=== PATIENT | male | born 1950 | race Caucasian/White ===

== ENCOUNTER → 2017-07-29 | Outpatient (CLI) | payer OTHER ==
[~2017-07-29] MED LIST: ASPI81TA28 PO; CYCL10TA6 PO; DULA0.5I INJ; FURO-85 PO; GABA-113 PO; HMLNPUC INJ; INSHNI INJ; INSU1.2I INJ; MELO7.5T5 PO; METF1TAB53 PO; NVLGI/PEN INJ; PRLSR20 PO; SIMV10TA2 PO; TAMS0.4C38 PO
[2017-07-29 16:56] LABS: ALT/SGPT 80 U/L (12-78); AST/SGOT 88 U/L (15-37); BLOOD UREA NITROGEN 15 mg/dl (7-18); BUN/CREATININE RATIO 12.9 (10-20); CALCIUM 8.7 mg/dl (8.5-10.1); CARBON DIOXIDE 30 mmol/L (21-32); CHLORIDE 102 mmol/L (98-107); CREATININE 1.13 mg/dl (0.60-1.40); GLUCOSE 273 mg/dl (70-99); POTASSIUM 3.5 mmol/L (3.5-5.1); SODIUM 141 mmol/L (136-145)
[2017-07-29 17:07] LABS: ALKALINE PHOSPHATASE 85 U/L (45-117)
[2017-07-30 05:30] LABS: ESTIMATED AVERAGE GLUCOSE 177 mg/dl; HA1C FLAG Normal (Normal)
== END | disposition home or self-care (01) ==
LOC: C.LAB 15:56
PROVIDERS: ATTEND Nurse Practitioner Adult Health
DX: K59.09 Other constipation (principal); E78.5 Hyperlipidemia, unspecified; I10 Essential (primary) hypertension; E11.49 Type 2 diabetes mellitus with other diabetic neurological complication; E11.65 Type 2 diabetes mellitus with hyperglycemia; E55.9 Vitamin D deficiency, unspecified

== ENCOUNTER 2017-08-17 05:45 | Inpatient (IN) | payer OTHER ==
[2017-07-29 15:22] VITALS: BMI 40.0
--- NOTE | 2017-07-29 16:15 | PAT Medication Instructions ---
Service Date Jul 29, 2017. Current Home Medication List Aspirin (Aspirin Ec), 81 MG PO QPM Cyclobenzaprine Hcl (Flexeril), 10 MG PO TID PRN for PRN Dulaglutide (Trulicity), 1.5 MG INJ THURSDAY Furosemide (Lasix), 20 MG PO QAM Gabapentin (Neurontin), 300 MG PO TID Insulin Aspart (Novolog Flexpen), 20-35 UNITS INJ HS Insulin Glargine (Toujeo Solostar), 35 INJ QAM Insulin Human NPH (Humulin N), 35 INJ HS Meloxicam (Mobic), 7.5 MG PO QPM Metformin Hcl (Glucophage Ext Rel), 1,000 MG PO BID Omeprazole (Prilosec), 20 MG PO QAM Simvastatin (Zocor), 10 MG PO QPM Tamsulosin Hcl (Flomax), 0.4 MG PO QPM Medication Instructions For Your Scheduled Surgery Continue as directed: Dulaglutide (Trulicity), 1.5 MG INJ THURSDAY - Contact your surgeon for instructions for: Meloxicam (Mobic), 7.5 MG PO QPM - Hold the following medications 48 hours prior to surgery: Metformin Hcl (Glucophage Ext Rel), 1,000 MG PO BID - Hold the following medications the morning of surgery: Furosemide (Lasix), 20 MG PO QAM Cyclobenzaprine Hcl (Flexeril), 10 MG PO TID PRN for PRN - Take the following medications the morning of surgery with a sip of water: Omeprazole (Prilosec), 20 MG PO QAM Gabapentin (Neurontin), 300 MG PO TID - Take the following medications as scheduled the night before surgery: Simvastatin (Zocor), 10 MG PO QPM Tamsulosin Hcl (Flomax), 0.4 MG PO QPM Gabapentin (Neurontin), 300 MG PO TID Aspirin (Aspirin Ec), 81 MG PO QPM Insulin Aspart (Novolog Flexpen), 20-35 UNITS INJ HS Insulin Human NPH (Humulin N), 35 INJ HS Cyclobenzaprine Hcl (Flexeril), 10 MG PO TID PRN for PRN - For Insulin Dependent Diabetic patients: Test blood sugar A.M. of surgery. - If BLOOD SUGAR IS GREATER THAN 150, take half of your regular dose of: Insulin Glargine (Toujeo Solostar), 35 INJ QAM TAKE 17 UNITS) - If BLOOD SUGAR IS LESS THAN 150, do not take any: Insulin Glargine ( Toujeo Solostar), 35 INJ QAM If you have any questions please call us at [phone] or [phone] or [phone]
[2017-07-29 16:43] LABS: BASO % 0.3 %; BASO ABS # 0.02 K/uL (0-0.2); EOS % 2.3 %; EOS ABS # 0.14 K/uL (0-0.5); HEMATOCRIT 40.9 % (42-52); HEMOGLOBIN 14.6 g/dL (14.0-18.0); IG# 0.03 K/uL (0.00-0.02); LYMPH % 33.4 %; LYMPH ABS # 2.07 K/uL (1.2-3.4); MEAN CELL VOLUME 90.5 fL (80-100); MEAN CORPUSCULAR HEMOGLOBIN 32.3 pg (25-34); MEAN CORPUSCULAR HGB CONC 35.7 g/dl (32-36); MEAN PLATELET VOLUME 9.7 fL (7.4-10.4); MONO % 8.5 %; MONO ABS # 0.53 K/uL (0.11-0.59); NEUT ABS # 3.41 K/uL (1.4-6.5); PLATELET COUNT 180 K/uL (130-400); RED CELL DISTRIBUTION WIDTH SD 43.1 fL (36.4-46.3)
--- NOTE | 2017-07-29 17:24 | DIAGNOSTIC IMAGING REPORT ---
CHEST 2 VIEWS ROUTINE CLINICAL HISTORY: PAT preoperative evaluation COMPARISON STUDY: No previous studies for comparison. FINDINGS: Pleural reactive change and pleural thickening both lung bases. In the absence of prior studies and is not clear whether this represents an acute or chronic finding. Mid to upper lungs are considered clear. Mild cardiomegaly. IMPRESSION: 1. Mild cardiomegaly. 2. Mid to upper lungs are clear bilaterally. 3. Pleural thickening and/or pleural scarring of both lung bases. In the absence of prior studies it is not determined whether this represents an acute or chronic finding. Old films should be acquired for comparison. The above report was generated using voice recognition software. It may contain grammatical, syntax or spelling errors. Electronically signed by: Graeme Chester M.D. 07/29/2017 5:22 PM Dictated Date/Time: 07/29/2017 5:21 PM
[~2017-08-17] VITALS: Ht 170.2 cm; Wt 116.9 kg
[2017-08-17] VITALS (9 sets, daily range): BP systolic 117–141; BP diastolic 74–86; PULSE 84–97; TEMP 36.5–36.7; O2SAT 92–98; Ht 170.2 cm; Wt 116.9 kg
[~2017-08-17 05:45] MED LIST changes: -HMLNPUC INJ
[2017-08-17] MEDS ORDERED: LACTATED RINGER'S 1000ML 1,000 ML IV SCH (06:00)
[2017-08-17] MEDS ORDERED: CEFAZOLIN 2000MG IV PUSH 10 ML IV SCH ×2 (06:00→16:00)
[2017-08-17] MEDS ORDERED: FENTANYL CITRATE INJ 50 MCG/1 ML 2 ML VIAL ONE ×3 (06:42→09:07)
[2017-08-17] MEDS ORDERED: MIDAZOLAM HCL 1 MG/ML 2ML VIAL ONE (06:42)
[2017-08-17] MEDS ORDERED: SODIUM CHLORIDE 0.9% PF 50 ML VIAL ONE (07:05)
[2017-08-17] MEDS ORDERED: BACITRACIN 50000 UNIT VIAL ONE (07:05)
[2017-08-17] MEDS ORDERED: BUPIVACAINE/EPINEPHRINE 0.5% MPF 1:200,000 30 ML VIAL ONE (07:05)
--- NOTE | 2017-08-17 07:29 | History & Physical Bridge Note ---
H&P Re-Evaluation Bridge Note: I have examined the patient, reviewed the History & Physical and in the interval since the performance of the History & Physical I have noted the following changes of clinical significance: No changes noted
--- NOTE | 2017-08-17 07:30 | History and Physical ---
History & Physical Date Aug 17, 2017. Chief Complaint Back and leg pain History of Present Illness The patient is a 66 year old male with complaints of back and leg pain Additional History Hepatic Disease: No Endocrine Disorder: No Kidney Disease: No Hypertension: No Heart Disease: No Bleeding Tendencies: No Infectious Diseases: No Allergies Coded Allergies: Naproxen (Verified Allergy, Unknown, SWELLING OF HANDS, 08/17/17) Esomeprazole (Unverified Adverse Reaction, Unknown, VOMITING, 08/17/17) Pregabalin (Unverified Adverse Reaction, Unknown, SUICIDAL THOUGHTS, 08/17) Home Medications Scheduled Aspirin (Aspirin Ec), 81 MG PO QPM Dulaglutide (Trulicity), 1.5 MG INJ THURSDAY Furosemide (Lasix), 20 MG PO QAM Gabapentin (Neurontin), 300 MG PO TID Insulin Aspart (Novolog Flexpen), 20-35 UNITS INJ HS Insulin Glargine (Toujeo Solostar), 35 INJ QAM Insulin Human NPH (Humulin N), 35 INJ HS Meloxicam (Mobic), 7.5 MG PO QPM Metformin Hcl (Glucophage Ext Rel), 1,000 MG PO BID Omeprazole (Prilosec), 20 MG PO QAM Simvastatin (Zocor), 10 MG PO QPM Tamsulosin Hcl (Flomax), 0.4 MG PO QPM Scheduled PRN Cyclobenzaprine Hcl (Flexeril), 10 MG PO TID PRN for PRN Diagnosis Lumbar spinal stenosis Plan of Treatment L2 to S1 decompression and fusion
[2017-08-17] MEDS ORDERED: ONDANSETRON INJ 2 MG/ML 2 ML VIAL IV PRN ×2 (07:45→10:00)
[2017-08-17] MEDS ORDERED: PROMETHAZINE HCL INJ 6.25 MG in SODIUM CHLORIDE 0.9% 50ML 50 ML IV PRN (07:45)
[2017-08-17] MEDS ORDERED: FENTANYL CITRATE INJ 50 MCG/1 ML 2 ML VIAL IV PRN (07:45)
[2017-08-17] MEDS ORDERED: ATROPINE SULFATE 0.1 MG/ML 5ML SYR IV PRN (07:45)
[2017-08-17] MEDS ORDERED: EpHEDrine SULFATE INJ 50 MG/ML AMP IV PRN (07:45)
[2017-08-17] MEDS ORDERED: HYDROmorphone INJ 2 MG/ML SYR/VIAL ONE ×2 (08:02→10:01)
[2017-08-17] MEDS ORDERED: EpHEDrine SULFATE 50MG/5ML SYR ONE (09:21)
[2017-08-17] MEDS ORDERED: PHENYLEPHRINE 100MCG/ML 5ML SYR ONE (09:21)
[2017-08-17] MEDS ORDERED: LIDOCAINE HCL 2% 2 ML VIAL (20MG/ML) ONE (09:40)
[2017-08-17] MEDS ORDERED: ONDANSETRON INJ 2 MG/ML 2 ML VIAL ONE ×2 (09:40→10:04)
[2017-08-17] MEDS ORDERED: ROCURONIUM BROMIDE 10 MG/ML 5 ML VIAL IV ONE (09:40)
[2017-08-17] MEDS ORDERED: PROPOFOL IV EMULSION 10 MG/ML 20 ML VIAL IV ONE (09:40)
[2017-08-17] MEDS ORDERED: FLOSEAL HEMOSTATIC MATRIX 10ML TOP ONE (09:48)
[2017-08-17] MEDS ORDERED: SODIUM CHLORIDE 0.9% 1000ML 1,000 ML IV SCH (09:59)
[2017-08-17] MEDS ORDERED: MAGNESIUM HYDROXIDE SUSP 30 ML UDC PO PRN (10:00)
[2017-08-17] MEDS ORDERED: ACETAMINOPHEN 500 MG TAB PO PRN (10:00)
[2017-08-17] MEDS ORDERED: PROMETHAZINE HCL INJ 12.5 MG in SODIUM CHLORIDE 0.9% 50ML 50 ML IV PRN (10:00)
[2017-08-17] MEDS ORDERED: LORAZEPAM 0.5 MG TAB PO PRN (10:00)
[2017-08-17] MEDS ORDERED: FAMOTIDINE 20 MG TAB PO PRN (10:00)
[2017-08-17] MEDS ORDERED: BISACODYL 10 MG SUPP PR PRN (10:00)
[2017-08-17] MEDS ORDERED: CYCLOBENZAPRINE HCL 10 MG TAB PO PRN (10:00)
[2017-08-17] MEDS ORDERED: DO NOT ADMINISTER FLU VACCINE PRN (10:00)
[2017-08-17] MEDS ORDERED: NALOXONE HCL 0.4 MG/1 ML VIAL/CARP IV PRN ×2 (10:00)
[2017-08-17] MEDS ORDERED: LORAZEPAM INJ 0.5 MG in SYRINGE 0.75 ML IV PRN (10:00)
[2017-08-17] MEDS ORDERED: SOD PHOSPHATE/SOD BIPHOSPHATE ENEMA 132 ML BTL PR PRN (10:00)
[2017-08-17] MEDS ORDERED: ACETAMINOPHEN IV 100 ML IV PRN (10:00)
[2017-08-17] MEDS ORDERED: ALUMINUM/MAGNESIUM SUSP 30 ML UDC PO PRN (10:00)
[2017-08-17] MEDS ORDERED: METOCLOPRAMIDE HCL INJ 5 MG/ML 2 ML VIAL IV PRN (10:00)
[2017-08-17] MEDS ORDERED: DO NOT ADMINISTER PNEUMOCOCCAL VACCINE PRN (10:00)
--- NOTE | 2017-08-17 10:02 | DIAGNOSTIC IMAGING REPORT ---
INTRAOPERATIVE LUMBAR SPINE 2 VIEWS CLINICAL HISTORY: L4-S1 DECOMPRESSION AND FUSION COMPARISON STUDY: No previous studies for comparison. FINDINGS: 2 fluoroscopic spot views are provided for interpretation. 26 seconds of fluoroscopic time was utilized. There are postsurgical changes of an L5-S1 discectomy and interbody fusion. There are postsurgical changes of a decompression and posterior spinal fusion with pedicle screws the L4, L5 and S1 levels with adjoining spinal rods. IMPRESSION: Postsurgical changes as described above. Electronically signed by: Erasmo Baker M.D. 08/17/2017 10:01 AM Dictated Date/Time: 08/17/2017 10:00 AM
[2017-08-17] MEDS ORDERED: KETOROLAC TROMETHAMINE 30 MG/ML VIAL ONE (10:04)
[2017-08-17] MEDS ORDERED: NEOSTIGMINE METHYLSULFATE 1 MG/ML 10ML VIAL ONE (10:04)
[2017-08-17] MEDS ORDERED: GLYCOPYRROLATE INJ 0.2 MG/ML VIAL ONE (10:04)
[2017-08-17] MEDS ORDERED: HYDROmorphone HCL 0.5MG/ML 50 ML CASSETTE ONE (10:26)
[2017-08-17] MEDS ORDERED: ESMOLOL HCL 10 MG/ML 10 ML VIAL ONE (11:05)
[2017-08-17] MEDS: HYDROmorphone HCL 0.5MG/ML 50 ML CASSETTE IV PRN ×3 (11:12→23:03)
--- NOTE | 2017-08-17 11:14 | Anesthesiology Progress Note ---
Anesthesia Post Op Note Date & Time Aug 17, 2017 at 11:14 Vital Signs Pain Intensity: 0 Vital Signs Past 12 Hours Date Time Temp Pulse Resp B/P (MAP) Pulse Ox O2 Delivery O2 Flow Rate FiO2 08/17/17 10:55 36.6 85 18 154/73 94 Nasal Cannula 4 08/17/17 10:45 86 18 155/82 97 Nasal Cannula 4 08/17/17 10:35 84 14 149/79 97 Oxymask 10 08/17/17 10:25 88 14 116/80 96 Oxymask 10 08/17/17 10:17 36.7 86 24 116/78 97 Oxymask 10 08/17/17 06:05 36.7 92 20 123/82 94 Room Air Notes Mental Status: alert / awake / arousable, participated in evaluation Pt Amnestic to Procedure: Yes Nausea / Vomiting: adequately controlled Pain: adequately controlled Airway Patency, RR, SpO2: stable & adequate BP & HR: stable & adequate Hydration State: stable & adequate Anesthetic Complications: no major complications apparent
--- NOTE | 2017-08-17 11:15 | NUR ---
OBS note: Pt. to room via bed. MATCHER intact, and IV fluid on pump per orders. Pt. is very sleepy from the anesthesia and unable to do teaching of call winn, MATCHER and bed controls at this time. Pts. at bedside. Call winn within reach.
[2017-08-17] MEDS ORDERED: DEXTROSE 50% 50 ML SYR IV PRN (12:45)
[2017-08-17] MEDS ORDERED: GLUCAGON FOR INJ 1 MG VIAL SQ PRN (12:45)
[2017-08-17] MEDS ORDERED: GLUCOSE 40% GEL 15 GM TUBE PO PRN (12:45)
[2017-08-17] MEDS ORDERED: GLUCOSE 10 TABS/TUBE PO PRN (12:45)
--- NOTE | 2017-08-17 13:10 | [facility] Operative Report ---
Operative Report Operative Date Aug 17, 2017. Pre-Operative Diagnosis Lumbar spinal stenosis Post-Operative Diagnosis Lumbar spinal stenosis Procedure(s) Performed #1 lumbar decompression medial facetectomy foraminotomies L3 4 L4 5 L5-S1. #2 posterior spinal fusion L4 5 L5-S1. #3 placement posterior segmental instrumentation L4 5 L5-S1. #4 interbody fusion L5-S1. #5 placement peek cage 12 x 22 mm L5 S1. #6 placement of locally harvested morcellized autograft in the posterior lateral gutters. #7 placement infuse collagen sponge combined Master graft in the posterior lateral gutters and ostial amp in the interbody space. Surgeon Dr. Jian Godinez School Commissioner Surgeon(s) Elise Hampton PA-C Estimated Blood Loss 225cc Findings Lumbar spinal stenosis Description of Procedure Patient was met with preoperatively case discussed all questions addressed. After informed consent obtained patient was taken to the operative suite underwent intubation placed in a prone position the Galindo table on top of the Viktor frame. All bony prominences well-padded eyes inspected to ensure no external pressure placed upon them. This point the lumbar spine is prepped draped in normal sterile fashion. Sharp dissection with the assistance of Bovie cautery was performed onto an exposing the lamina and transverse processes of L4-L5 and sacral alar bilaterally. From a caudal cephalad fashion complete laminectomy of L5 L4 and partial laminectomy of L3 performed addressing severe central lateral disease. After this complete pedicle screws were placed in L4-L5 and sacral alar bilaterally. The purposes jamie placed. Through a transforaminal approach on the left complete discectomy of L5-S1 was performed and plate created to subcortical bleeding bone and a 12 x 22 mm peek cage filled with ostial amp bone graft tapped in position. The rods were then locked into final position bilaterally. The transverse processes of L4-L5 and sacral alar burred to subcortical bleeding bone. Infuse collagen sponge mask graft locally harvested morcellized autograft was placed in the posterior lateral gutters. 15 round JALEN drain inserted. Incision was then closed with 1 Vicryl in the fascia 2-0 Vicryl subcutaneous tediously 4 Monocryl for final skin closure Steri-Strips sterile dressings placed. Patient we can take PACU stable condition. Please note Elise Hampton present at the entire procedure involved in patient positioning complex portions of the surgery and final skin closure. I attest to the content of the Intraoperative Record and any orders documented therein. Any exceptions are noted below.
--- NOTE | 2017-08-17 13:13 | Medical Consult ---
Consultation Date of Consultation: Aug 17, 2017. Attending Physician: Jian Godinez D.O. Reason for Consultation: Post-op medical management History of Present Illness This is a 66yo M with a PMH of lumbar stenosis with neurogenic claudication, DM II, HTN, HLD, GERD, BPH and DEBORAH who is POD#0 s/p L4-S1 decompression and fusion by Dr. Godinez. 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 Doing well post-operatively. Denies any pain, fever , chills, lightheadedness, CP, SOB, abd pain, nausea, vomiting, LE swelling. Denies any history of heart disease. Follows with an inpatient pharmacist in [place], [place] for diabetes but is unsure of his most recent hgb a1c. Did not take insulin this AM prior to surgery per pre-op instructions. Past Medical/Surgical History Medical Problems: (1) BPH (benign prostatic hyperplasia) Status: Chronic (2) Diabetes mellitus type II, controlled Status: Chronic (3) GERD (gastroesophageal reflux disease) Status: Chronic (4) HLD (hyperlipidemia) Status: Chronic (5) Lumbar stenosis with neurogenic claudication Status: Chronic (6) Sleep apnea Status: Chronic Family History Patient is adopted and does not know history of biological parents. Social History Smoking Status: Never Smoker Alcohol Use: none Marital Status: Housing Status: lives with significant other Occupation Status: disabled Allergies Coded Allergies: Naproxen (Verified Allergy, Unknown, SWELLING OF HANDS, 08/17/17) Esomeprazole (Unverified Adverse Reaction, Unknown, VOMITING, 08/17/17) Pregabalin (Unverified Adverse Reaction, Unknown, SUICIDAL THOUGHTS, 08/17) Home Medications Reported Home Medications Medications Dose Route/Sig Max Daily Dose Days Date Category Humulin N (Insulin Human NPH) 100 Units/Ml Susp 35 INJ HS 07/29/17 Reported Toujeo Solostar (Insulin Glargine) 300 Unit/Ml Inj 35 INJ QAM 07/29/17 Reported Flexeril (Cyclobenzaprine Hcl) 10 Mg Tab 10 Mg PO TID PRN 07/29/17 Reported Mobic (Meloxicam) 7.5 Mg Tab 7.5 Mg PO QPM 07/29/17 Reported Novolog Flexpen (Insulin Aspart) 100 Units/Ml Inj 20-35 Units INJ HS 07/29/17 Reported Aspirin Ec (Aspirin) 81 Mg Tab 81 Mg PO QPM 07/29/17 Reported Zocor (Simvastatin) 10 Mg Tab 10 Mg PO QPM 07/29/17 Reported Flomax (Tamsulosin Hcl) 0.4 Mg Cap 0.4 Mg PO QPM 07/29/17 Reported Lasix (Furosemide) 20 Mg Tab 20 Mg PO QAM 07/29/17 Reported Neurontin (Gabapentin) 300 Mg Cap 300 Mg PO TID 07/29/17 Reported Trulicity (Dulaglutide) 1.5 Mg/0.5 Ml Inj 1.5 Mg INJ Thursday07/29/17 Reported Prilosec (Omeprazole) 20 Mg Capcr 20 Mg PO QAM 07/29/17 Reported Glucophage Ext Rel (Metformin Hcl) 1,000 Mg Tab 1,000 Mg PO BID 07/29/17 Reported Current Inpatient Medications Current Inpatient Medications Medications (Trade) Dose Ordered Sig/Mc Route Start Time Stop Time Status Last Admin Dose Admin Cefazolin Sodium 10 ml @ 2.5 mls/min PREOP IV 08/17/17 06:00 08/17/17 18:00 08/17/17 07:40 2.5 MLS/MIN Lactated Ringer's 1,000 ml @ 15 mls/hr Q24H IV 08/17/17 06:00 08/18/17 05:59 08/17/17 06:13 15 MLS/HR Fentanyl Citrate (Fentanyl Inj) 50 mcg Q5M PRN IV 08/17/17 07:45 08/17/17 12:45 Ondansetron HCl (Zofran Inj) 4 mg ONE PRN IV 08/17/17 07:45 08/17/17 12:45 Promethazine HCl 6.25 mg/Sodium Chloride 50.25 ml @ 202 mls/hr ONE PRN IV 08/17/17 07:45 08/17/17 12:45 Ephedrine Sulfate (EpHEDrine SULFATE INJ) 5 mg Q5M PRN IV 08/17/17 07:45 08/17/17 12:45 Atropine Sulfate (Atropine Sulfate 0.1MG/Ml Inj) 0.5 mg Q1M PRN IV 08/17/17 07:45 08/17/17 12:45 Promethazine HCl 12.5 mg/Sodium Chloride 50.5 ml @ 202 mls/hr Q6H PRN IV 08/17/17 10:00 09/16/17 09:59 Ondansetron HCl (Zofran Inj) 4 mg Q6H PRN IV 08/17/17 10:00 09/16/17 09:59 Metoclopramide HCl (Reglan Inj) 10 mg Q6H PRN IV 08/17/17 10:00 09/16/17 09:59 Lorazepam (Ativan Tab) 0.5 mg Q8H PRN PO 08/17/17 10:00 09/16/17 09:59 Lorazepam 0.5 mg/ Syringe 1 ml @ 1 mls/min Q8H PRN IV 08/17/17 10:00 09/16/17 09:59 Pneumococcal Polysaccharide Vaccine 1 ea PRN PRN N/A 08/17/17 10:00 09/16/17 09:59 Influenza Virus Vacc Triv Types A&B 1 ea PRN PRN N/A 08/17/17 10:00 09/16/17 09:59 Polyethylene (Miralax Powder Packet) 17 gm Q6 PO 08/19/17 06:00 09/18/17 05:59 UNV Bisacodyl (Dulcolax Supp) 10 mg DAILY PRN RI 08/17/17 10:00 09/16/17 09:59 Magnesium Hydroxide (Milk Of Magnesia Susp) 30 ml DAILY PRN PO 08/17/17 10:00 09/16/17 09:59 Hydromorphone HCl (Dilaudid Inj) 0.5-1mg prn moder... Q3H PRN IV 08/18/17 06:00 09/01/17 05:59 Cefazolin Sodium 2000 mg/Dextrose 60 ml @ 100 mls/hr Q8H IV 08/17/17 10:00 08/17/17 18:35 UNV Sodium Chloride 1,000 ml @ 150 mls/hr Q6H40M IV 08/17/17 09:59 09/16/17 09:58 UNV Acetaminophen (Tylenol Tab) 1,000 mg Q8H PRN PO 08/17/17 10:00 09/16/17 09:59 Acetaminophen 100 ml @ 400 mls/hr Q8H PRN IV 08/17/17 10:00 09/16/17 09:59 Naloxone HCl (Narcan Inj) 0.1 mg Q5M PRN IV 08/17/17 10:00 09/16/17 09:59 Senna/Docusate Sodium (Senokot S Tab) 2 tab HS PO 08/17/17 21:00 09/16/17 20:59 UNV Sodium Biphosphate/ Sodium Phosphate (Fleet Enema) 132 ml ONE PRN RI 08/17/17 10:00 09/16/17 09:59 Hydroxyzine HCl (Vistaril Tab) 25 mg Q8H PRN PO 08/17/17 10:00 09/16/17 09:59 UNV Al Hydroxide/Mg Hydroxide (Maalox Susp) 30 ml Q6H PRN PO 08/17/17 10:00 09/16/17 09:59 Famotidine (Pepcid Tab) 20 mg Q12 PRN PO 08/17/17 10:00 09/16/17 09:59 UNV Diphenhydramine HCl (Benadryl Cap) 25 mg Q6H PRN PO 08/17/17 10:00 09/16/17 09:59 Miscellaneous Information (Discontinue GUIDEMAN) 1 ea TODAY@0600 N/A 08/18/17 06:00 08/18/17 06:01 Naloxone HCl (Narcan Inj) 0.1 mg Q5M PRN IV 08/17/17 10:00 08/18/17 06:00 Hydromorphone HCl (Dilaudid [employer]) 25 mg PRN PRN IV 08/17/17 10:00 08/18/17 06:00 08/17/17 11:12 25 MG Sodium Chloride 1,000 ml @ 15 mls/hr Q24H IV 08/17/17 09:59 08/18/17 06:00 Aspirin (Ecotrin Tab) 81 mg QPM PO 08/17/17 21:00 09/16/17 20:59 UNV Cyclobenzaprine HCl (Flexeril Tab) 10 mg TID PRN PO 08/17/17 10:00 09/16/17 09:59 UNV Furosemide (Lasix Tab) 20 mg QAM PO 08/18/17 09:00 09/17/17 08:59 UNV Gabapentin (Neurontin Cap) 300 mg TID PO 08/17/17 14:00 09/16/17 13:59 UNV Simvastatin (Zocor Tab) 10 mg QPM PO 08/17/17 21:00 09/16/17 20:59 UNV Tamsulosin HCl (Flomax Cap) 0.4 mg QPM PO 08/17/17 21:00 09/16/17 20:59 UNV Non-Formulary Medication (Omeprazole (Prilosec)) 20 mg QAM PO 08/18/17 09:00 09/17/17 08:59 UNV Review of Systems Ten systems reviewed and negative except as noted in the HPI. Physical Exam Date Time Temp Pulse Resp B/P (MAP) Pulse Ox O2 Delivery O2 Flow Rate FiO2 08/17/17 11:10 36.7 84 16 141/74 (96) 94 Nasal Cannula 4.0 08/17/17 11:10 94 Nasal Cannula 4.0 08/17/17 11:10 94 Nasal Cannula 4.0 08/17/17 10:55 36.6 85 18 154/73 94 Nasal Cannula 4 08/17/17 10:45 86 18 155/82 97 Nasal Cannula 4 08/17/17 10:35 84 14 149/79 97 Oxymask 10 08/17/17 10:25 88 14 116/80 96 Oxymask 10 08/17/17 10:17 36.7 86 24 116/78 97 Oxymask 10 08/17/17 06:05 36.7 92 20 123/82 94 Room Air General Appearance: no apparent distress, + obese, + pertinent finding ( Resting comfortably) Head: normocephalic, atraumatic Eyes: normal inspection, PERRL, sclerae normal ENT: normal ENT inspection, hearing grossly normal, pharynx normal (moist mucous membranes ) Neck: supple, thyroid normal, trachea midline Respiratory/Chest: chest non-tender, lungs clear, normal breath sounds, no respiratory distress, no accessory muscle use Cardiovascular: regular rate, rhythm, no murmur, normal peripheral pulses Abdomen/GI: non tender, soft, no organomegaly Back: + pertinent finding (post-op dressing in place. Clean, dry, intact. ) Extremities/Musculoskelatal: normal inspection, no calf tenderness, no pedal edema Neurologic/Psych: no motor/sensory deficits, alert, normal mood/affect, oriented x 3 Skin: normal color, warm/dry Laboratory Results Last 24 Hours Test 08/17/17 06:28 08/17/17 10:23 Bedside Glucose 242 mg/dl 204 mg/dl Assessment & Plan This is a 66yo M with a PMH of lumbar stenosis with neurogenic claudication, DM II, HTN, HLD, GERD, BPH and DEBORAH who is POD#0 s/p L4-S1 decompression and fusion by Dr. Godinez. Lumbar stenosis s/p spinal surgery: -POD#0 s/p L4-S1 decompression and fusion by Dr. Godinez -Pt is doing well post-operatively -Recommend holding mobic post-operatively -Okay to continue baby aspirin tonight, per Dr. Godinez -Per ortho for pain control, wound care, anticoagulation and activities -Monitor H&H, continue incentive spirometry, PT/OT when appropriate DM II: -Hgb a1c unknown -Will check in AM -Follows closely with inpatient pharmacist -Hold home agents -Discussed in-patient glycemic regimen with pharmacy -BG checks AC HS HTN: -Stable -Resume lasix once completed IVF -Add 0.1mg clonidine Q6 PRN for SBP >160 HLD: -Cont home dose statin GERD: -Cont omeprazole BPH: -Cont tamsulosin DEBORAH: -Wears mouthguard at night -No CPAP DVT Ppx: Per ortho Code status: FULL PCP: Dr. Phelps (PCP in [place], [place]) Dispo: Per ortho Patient seen in collaboration with Dr. Mallory. Please see addendum. Thank you for this consultation. We will follow the patient with you during their hospital stay. You can reach a member of the [facility] Hospitalist Team 23/03 via pager @ [phone]. Agree with above consult. Briefly 66m is s/p back surgery. pain under control. Denies chest pain or sob. Afebrile. No nausea. Resting comfortably p/e Ge Not in distress Cvs s1 and s2 heard regular no murmurs Rs cta b/l no wheezing or crackles present Abd benign Machine Fixer non focal musculoskeletal s/p back surgery dressing intact Ext no edema a/p s/p back surgery management as per ortho DM hold po meds ISS will monitor
[2017-08-17] MEDS: SODIUM CHLORIDE 0.9% 1000ML 1,000 ML IV SCH ×3 (14:25→23:30)
[2017-08-17] MEDS: INSULIN GLARGINE SOLOSTAR 100 UNITS/ML 3 ML PEN SC SCH ×2 (14:31→21:29)
[2017-08-17] MEDS: INSULIN ASPART 100 UNITS/ML 3 ML PEN SC SCH ×3 (14:32→21:29)
[2017-08-17] MEDS: GABAPENTIN 300 MG CAP PO SCH ×2 (14:35→21:24)
--- NOTE | 2017-08-17 15:30 | NUR ---
ID: Pt A/O x 4. Rates pain 10/10 at this time. COMPLIANCE COORDINATOR of 0.25mg dilaudid Q10min 0 continuous. NSS at 150 in the left FA. Triflow to 2250 on 4L NC. Pt CO bilateral lower extremity neuropathy, baseline. Pt is passing gas. DMT2 . Barnard draining clear yellow. JALEN draining bloody, dressing intact. ABD and medipore clean dry and intact. Bed in low and locked position, call winn in reach, pt rings appropriately. Pt states he wears a Bite guard at night for sleep apnea.
[2017-08-17] MEDS ORDERED: CEFAZOLIN IV 2,000 MG in DEXTROSE 5% 50ML 50 ML IV SCH (16:00)
[2017-08-17] MEDS: CEFAZOLIN IV 2,000 MG in SYRINGE 0 ML IV SCH ×2 (16:09→23:30)
[2017-08-17] MEDS: TAMSULOSIN HCL 0.4 MG CAP PO SCH (21:24)
[2017-08-17] MEDS: SIMVASTATIN 10 MG TAB PO SCH (21:24)
[2017-08-17] MEDS: DOCUSATE SODIUM/SENNA 50/8.6MG TAB PO SCH (21:24)
[2017-08-17] MEDS: ASPIRIN 81 MG ECTAB PO SCH (21:24)
[2017-08-18] VITALS (9 sets, daily range): BP systolic 116–162; BP diastolic 75–84; PULSE 94–106; TEMP 36.8–37.2; O2SAT 86–95
[2017-08-18] MEDS ORDERED: INSULIN ASPART 100 UNITS/ML 3 ML PEN SC ONE (02:00)
[2017-08-18] MEDS ORDERED: NURSING DECISION MEDICATION ORDER SCH (05:15)
[2017-08-18] MEDS ORDERED: DC PCA SCH (06:00)
[2017-08-18] MEDS ORDERED: HYDROmorphone INJ 0.5 MG/0.5 ML SYR IV PRN (06:00)
[2017-08-18] MEDS ORDERED: hydrOXYzine HCL 25 MG TAB PO PRN (06:01)
--- NOTE | 2017-08-18 07:40 | Anesthesiology Progress Note ---
Anesthesia Post Op Note Date & Time Aug 18, 2017 at 07:40 Vital Signs Pain Intensity: 8.0 Vital Signs Past 12 Hours Date Time Temp Pulse Resp B/P (MAP) Pulse Ox O2 Delivery O2 Flow Rate FiO2 08/18/17 07:20 36.9 99 18 143/76 (98) 94 Room Air 08/18/17 03:45 37.1 98 18 125/77 (93) 93 Nasal Cannula 2.0 08/17/17 23:35 Nasal Cannula 2.0 08/17/17 23:33 93 Nasal Cannula 2.0 08/17/17 23:10 36.7 93 16 117/74 (88) 98 Nasal Cannula 4.0 Notes Mental Status: alert / awake / arousable, participated in evaluation Pt Amnestic to Procedure: Yes Nausea / Vomiting: adequately controlled Pain: adequately controlled Airway Patency, RR, SpO2: stable & adequate BP & HR: stable & adequate Hydration State: stable & adequate Anesthetic Complications: no major complications apparent
[2017-08-18] MEDS: GABAPENTIN 300 MG CAP PO SCH ×3 (08:25→21:11)
[2017-08-18] MEDS: FUROSEMIDE 20 MG TAB PO SCH (08:25)
[2017-08-18] MEDS: PANTOprazole SOD 40 MG TAB PO SCH (08:26)
[2017-08-18] MEDS: INSULIN ASPART 100 UNITS/ML 3 ML PEN SC SCH ×4 (08:30→21:15)
[2017-08-18] MEDS: INSULIN GLARGINE SOLOSTAR 100 UNITS/ML 3 ML PEN SC SCH ×2 (08:32→21:16)
[2017-08-18 08:37] LABS: BASO % 0.1 %; BASO ABS # 0.01 K/uL (0-0.2); EOS % 0.9 %; EOS ABS # 0.09 K/uL (0-0.5); HEMATOCRIT 38.3 % (42-52); HEMOGLOBIN 13.7 g/dL (14.0-18.0); IG# 0.02 K/uL (0.00-0.02); LYMPH % 17.1 %; LYMPH ABS # 1.67 K/uL (1.2-3.4); MEAN CELL VOLUME 92.3 fL (80-100); MEAN CORPUSCULAR HGB CONC 35.8 g/dl (32-36); MONO % 8.9 %; MONO ABS # 0.87 K/uL (0.11-0.59); NEUT % 72.8 %; NEUT ABS # 7.13 K/uL (1.4-6.5); PLATELET COUNT 131 K/uL (130-400); RED CELL DISTRIBUTION WIDTH CV 12.9 % (11.5-14.5); RED CELL DISTRIBUTION WIDTH SD 43.7 fL (36.4-46.3); WHITE BLOOD COUNT 9.79 K/uL (4.8-10.8)
[2017-08-18 08:56] LABS: CALCIUM 8.3 mg/dl (8.5-10.1); CREATININE 0.98 mg/dl (0.60-1.40); POTASSIUM 4.1 mmol/L (3.5-5.1)
[2017-08-18 09:29] LABS: HEMOGLOBIN A1C 7.5 % (4.5-5.6)
[2017-08-18] MEDS ORDERED: NURSING VERBAL MED ORDER ONE ×2 (10:45→14:45)
--- NOTE | 2017-08-18 11:19 | NUR ---
Case Management- Met with patient in room. Patient reports he lives with significant other in a two story home with no steps to enter has a first floor set up. He is independent with adls using no devices and still drives. Patient reports he uses no assistive devices if there is a need he would like to use dme supplier in [place]. Patient plans to return home on discharge. CM following
--- NOTE | 2017-08-18 12:15 | NUR ---
A note: When getting pt. OOB to the BR this morning and checking his dressing, I noticed he had a fluid filled blister and an open blister to his R upper back. I also noted that pt. had been sweating and his back and sheet was damp. I cleaned the area and left it open to air. Dr. Godinez aware. No new orders at this time.
[2017-08-18] MEDS ORDERED: RXC5 PO (12:18)
--- NOTE | 2017-08-18 12:19 | Discharge Instructions ---
Discharge Instructions Date of Service Aug 18, 2017. Admission Reason for Admission: Lumbar Spinal Stenosis Discharge Discharge Diagnosis / Problem: lumbar stenosis Discharge Goals Goal(s): Improve function Activity Recommendations Activity Limitations: per Instructions/Follow-up section . Instructions / Follow-Up Instructions / Follow-Up ACTIVITY RECOMMENDATIONS: SELF CARE INSTRUCTIONS AFTER THORACIC/LUMBAR FUSIONS 1. You may walk to your tolerance. It is good exercise for your legs and back. Expect some back and intermittent leg aches and pains. 2. You may perform "counter-top" level activities (make a sandwich, rosa maria with a project, etc.). 3. No bending or lifting of more than 10 pounds or back twisting of any nature (roll like a log when turning in bed). 4. You may ride in a car for 20-30 minutes at a time. No driving until after your first visit with your doctor. 5. Frequent changes of position and restricting sitting to 30 minutes at a time will help limit the amount of back spasms and stiffness you may experience. 6. You may discontinue the use of ambulatory aids (cane, crutches, etc.) once your strength and confidence allow. 7. You may mill roll rewinder the shower and let water strike your incision when you arrive home at least once daily. Do not take a tub bath, sit in a hot tub or go into a swimming pool until after your first recheck in the office. SPECIAL CARE INSTRUCTIONS: VERY IMPORTANT TO READ AND REVIEW A. Your surgical incision has been closed with a cosmetic suture under the skin that will dissolve in about 6 weeks. In 14 days, you can use a pair of clean scissors and cut the suture that is left outside of the skin at the ends of your incision. 1. The small skin tapes can be removed 7 days after surgery if they have not fallen off by that point. 2. You may keep the wound open to air as much as possible to promote healing after post-op day number 5 unless told otherwise by your doctor. 3. If you think the wound looks like it is becoming infected (redness or worsening drainage) and/or you are experiencing fever, chill or worsening back pain and muscle spasms, contact the office so that we may evaluate you as soon as possible. B. Complications are uncommon, but please contact us if you have any signs or symptoms of: 1. wound infection (fever higher than 102.5 degrees F, redness, separation of wound, drainage, or increasing pain from the incision) 2. blood clots in legs (pain, swelling, redness and warmth in legs) 3. urinary tract infection (fever higher than 102.5 degrees F, burning upon urination or increased frequency of urination) 4. nerve problems (inability to walk on your toes or heels, numbness, loss of bowel or bladder control) 5. any other symptoms that concern you C. Please call the office at if you have any concerns or questions about your operation or recovery. D. No smoking! Smoking drastically decreases the chance of a solid fusion. E. Do not take any anti-inflammatory medications (Indocin, Advil, Motrin, Aspirin, Naprosyn, etc.) as these may inhibit the chance of a solid fusion. Tylenol is okay to take for pain. MANAGING PAIN AFTER SPINAL SURGERY 1. Narcotic medication is intended for short-term use and will be provided for surgical pain. Surgical pain usually lasts for a period of 4-6 weeks. Narcotic medication includes Percocet, Vicodin, Darvocet, Tylenol #3 or Lortab. 2. Longer-term pain is more appropriately treated with non-narcotic medication such as Tylenol ES. 3. Muscle spasm is not appropriately treated with narcotics. Muscle relaxers such as Soma, Flexeril or Skelaxin can be used along with Tylenol ES. 4. Remember that we all live with some "aches and pains". This is not unusual or uncommon after an injury or as we get older. a. Back pain is expected and may include muscle spasms for 4 to 6 weeks after surgery. The pain should gradually improve. If the pain worsens for no apparent reason, please contact the office. b. Intermittent leg pain may also be experienced and should not be concerned about unless it worsens for no apparent reason. If so, please contact the office. 5. We will provide appropriate medication within the normal guidelines of their prescribed use. We will also be very cautious and aware of potential abuse and extended duration of patients' medication needs. a. Pain medications are for your comfort and to assist with sleep and rest so that the tissue can heal. They are not provided in order to return to normal activity and should not be used through the day. To do so or worsening pain at night can result from ongoing tissue damage and development of tolerance to the prescribed medicine. 6. Please allow 2-3 days to process refills. Prescriptions will not be mailed but must be picked up at the office. FOLLOW UP VISIT: Keep your scheduled follow-up appointment. Any questions, please call the office at . Current Hospital Diet Patient's current hospital diet: Diabetes Type 2 Diet Discharge Diet Recommended Diet: Regular Diet Procedures Procedures Performed: #1 lumbar decompression medial facetectomy foraminotomies L3 4 L4 5 L5-S1. #2 posterior spinal fusion L4 5 L5-S1. #3 placement posterior segmental instrumentation L4 5 L5-S1. #4 interbody fusion L5-S1. #5 placement peek cage 12 x 22 mm L5 S1. #6 placement of locally harvested morcellized autograft in the posterior lateral gutters. #7 placement infuse collagen sponge combined Master graft in the posterior lateral gutters and ostial amp in the interbody space. Pending Studies Studies pending at discharge: no Laboratory Results Hemoglobin A1c Test 08/18/17 08:23 Range/Units Estimated Average Glucose 169 mg/dl Hemoglobin A1c 7.5 H 4.5-5.6 % Medical Emergencies . Who to Call and When: Medical Emergencies: If at any time you feel your situation is an emergency, please call 911 immediately. . Non-Emergent Contact Non-Emergency issues call your: Primary Care Provider . "Provider Documentation" section prepared by Jian Godinez. . VTE Core Measure Inpt VTE Proph given/why not?: Devonte Asencio, SCD's
--- NOTE | 2017-08-18 12:37 | Progress Note ---
Progress Note Date of Service Aug 18, 2017. Progress Note Patient is postop day #1. Back pain is controlled. Leg symptoms improved. Vital signs are stable. On exam he is sitting up in bed he is comfortable. Demonstrate good strength testing. Assessment status post lumbar decompression fusion. Plan at this time will continue physical therapy advance his bowel regimen anticipate home .
[2017-08-18] MEDS: KETOROLAC TROMETHAMINE 15 MG/ML VIAL IV. PRN (13:15)
--- NOTE | 2017-08-18 15:40 | NUR ---
ID: A/O x 4 at this time. oob x 1 assist with a walker. Pt sitting in chair presently. Saline locked in the left hand. Triflow to 2200 on 2L nasal cannula. Tolerating DMT2 diet. Incontinent per report, not presently witnessed. ABD and medipore to back, clean dry and intact with a JALEN holding suction at this time. Additionally there are 3-4 open blisters to the right upper back open to air at this time, will continue to monitor for changes. Pt has a slight tremor to the bilateral hands but otherwise appears to be resting comfortably. When asked about alcohol intake pt states he has 5-10 beers/day. Bed in low and locked position, call winn in reach. Pt forgets to ring.
--- NOTE | 2017-08-18 18:00 | NUR ---
A: Pt put himself back in bed. Intermittent confusion, when asked why he is getting up he says "you tell me". Incontinence witnessed. Pt reorients quickly, but is unstable on his feet. Bed alarm is on, chair alarm ordered in the event that he wants to sit in the chair again, Socks changed to Red. Reinforcement regarding call winn use and ringing for help provided. MD aware of confusion and alcohol use.
[2017-08-18] MEDS: OXYCODONE HCL IR 5 MG TAB (IMMEDIATE RELEASE) PO PRN (18:12)
--- NOTE | 2017-08-18 18:52 | Progress Note ---
Internal Med Progress Note Date of Service: Aug 18, 2017. Provider Documentation: SUBJECTIVE: Seen and examined at bedside Back pain is controlled Denies chest pain, SOB, dizziness No other complaints OBJECTIVE: Vital Signs-as noted below Physical Exam: General Appearance:Obese, no apparent distress Head: normocephalic, Atraumatic Eyes: normal inspection, EOMI, PERRL Neck: supple, Trachea midline Respiratory/Chest: Normal breath sounds, CTA Cardiovascular: S1, S2, No murmur Abdomen/GI:Soft, Non tender, Bowel sounds present Back: Surgical site in bandage, +drain Extremities/Musculoskelatal:normal inspection, no edema Neurologic/Psych:AAOX3, grossly no focal neurological deficits Skin: normal color, warm Lab data as noted below. ASSESSMENT & PLAN: Patient is a 66 yr male with PMH of lumbar stenosis with neurogenic claudication , DM II, HTN, HLD, GERD, BPH and DEBORAH who is POD#0 s/p L4-S1 decompression and fusion by Dr. Godinez. Lumbar stenosis s/p spinal surgery: POD # 1 s/p L4-S1 decompression and fusion by Dr. Godinez Pain control Bowel regimen wound care, anticoagulation and activity per Ortho Incentive spirometry PT/OT DM II: A1C:7.5 Hold home agents ISS, Lnatus Monitor BG levels HTN: Stable Continue lasix HLD: Continue statin GERD: Continue PPI BPH: Continue tamsulosin DEBORAH: Wears mouthguard at night No CPAP Alcohol use disorder: Thiamine, folic acid Already on Gabapentin for Neuropathy Monitor for withdrawal DVT Px: Per ortho Code status: FULL Disposition: Per ortho Vital Signs: Date Time Temp Pulse Resp B/P (MAP) Pulse Ox O2 Delivery O2 Flow Rate FiO2 08/18/17 15:30 37.2 99 18 116/75 (89) 92 Nasal Cannula 2.0 08/18/17 11:39 36.8 94 16 126/79 (95) 94 Nasal Cannula 1.0 08/18/17 10:11 100 95 08/18/17 09:08 93 Nasal Cannula 1.0 08/18/17 09:07 86 Room Air 08/18/17 07:20 36.9 99 18 143/76 (98) 94 Room Air 08/18/17 07:20 Room Air 08/18/17 03:45 37.1 98 18 125/77 (93) 93 Nasal Cannula 2.0 08/17/17 23:35 Nasal Cannula 2.0 08/17/17 23:33 93 Nasal Cannula 2.0 08/17/17 23:10 36.7 93 16 117/74 (88) 98 Nasal Cannula 4.0 Lab Results: Results Past 24 Hours Test 08/17/17 20:42 08/18/17 01:55 08/18/17 08:00 08/18/17 08:23 Range/Units Bedside Glucose 201 190 212 70-99 mg/dl White Blood Count 9.79 4.8-10.8 K/uL Red Blood Count 4.15 4.7-6.1 M/uL Hemoglobin 13.7 14.0-18.0 g/dL Hematocrit 38.3 42-52 % Mean Corpuscular Volume 92.3 80-100 fL Mean Corpuscular Hemoglobin 33.0 25-34 pg Mean Corpuscular Hemoglobin Concent 35.8 32-36 g/dl Platelet Count 131 130-400 K/uL Mean Platelet Volume 10.0 7.4-10.4 fL Neutrophils (%) (Auto) 72.8 % Lymphocytes (%) (Auto) 17.1 % Monocytes (%) (Auto) 8.9 % Eosinophils (%) (Auto) 0.9 % Basophils (%) (Auto) 0.1 % Neutrophils # (Auto) 7.13 1.4-6.5 K/uL Lymphocytes # (Auto) 1.67 1.2-3.4 K/uL Monocytes # (Auto) 0.87 0.11-0.59 K/uL Eosinophils # (Auto) 0.09 0-0.5 K/uL Basophils # (Auto) 0.01 0-0.2 K/uL RDW Standard Deviation 43.7 36.4-46.3 fL RDW Coefficient of Variation 12.9 11.5-14.5 % Immature Granulocyte % (Auto) 0.2 % Immature Granulocyte # (Auto) 0.02 0.00-0.02 K/uL Sodium Level 136 136-145 mmol/L Potassium Level 4.1 3.5-5.1 mmol/L Chloride Level 100 98-107 mmol/L Carbon Dioxide Level 31 21-32 mmol/L Anion Gap 5.0 3-11 mmol/L Blood Urea Nitrogen 9 7-18 mg/dl Creatinine 0.98 0.60-1.40 mg/dl Est Creatinine Clear Calc Drug Dose 90.6 ml/min Estimated GFR () 92.7 Estimated GFR (Non- 80.0 BUN/Creatinine Ratio 9.5 10-20 Random Glucose 217 70-99 mg/dl Estimated Average Glucose 169 mg/dl Hemoglobin A1c 7.5 4.5-5.6 % Calcium Level 8.3 8.5-10.1 mg/dl Hepatitis C Antibody Screen NEG NEG Test 08/18/17 11:52 08/18/17 17:15 Range/Units Bedside Glucose 206 212 70-99 mg/dl
[2017-08-18] MEDS ORDERED: THIAMINE HCL 100 MG TAB PO ONE (19:15)
[2017-08-18] MEDS: ASPIRIN 81 MG ECTAB PO SCH (21:10)
[2017-08-18] MEDS: TAMSULOSIN HCL 0.4 MG CAP PO SCH (21:11)
[2017-08-18] MEDS: DOCUSATE SODIUM/SENNA 50/8.6MG TAB PO SCH (21:11)
[2017-08-18] MEDS: SIMVASTATIN 10 MG TAB PO SCH (21:11)
[2017-08-19] MEDS: KETOROLAC TROMETHAMINE 15 MG/ML VIAL IV. PRN (00:15)
[2017-08-19] MEDS: POLYETHYLENE (MIRALAX) 17 GM PACK PO SCH ×3 (05:24→18:12)
[2017-08-19 06:16] VITALS: BP 122/73; PULSE 98; TEMP 36.8; O2SAT 94
[2017-08-19] MEDS: OXYCODONE HCL IR 5 MG TAB (IMMEDIATE RELEASE) PO PRN ×2 (07:22→19:27)
[2017-08-19] MEDS: PANTOprazole SOD 40 MG TAB PO SCH (07:23)
[2017-08-19] MEDS: GABAPENTIN 300 MG CAP PO SCH ×3 (07:23→20:53)
[2017-08-19] MEDS: THIAMINE HCL 100 MG TAB PO SCH (07:23)
[2017-08-19] MEDS: FUROSEMIDE 20 MG TAB PO SCH (07:24)
[2017-08-19] MEDS: INSULIN GLARGINE SOLOSTAR 100 UNITS/ML 3 ML PEN SC SCH ×2 (07:27→21:07)
[2017-08-19] MEDS: INSULIN ASPART 100 UNITS/ML 3 ML PEN SC SCH ×4 (07:27→21:00)
[2017-08-19 11:58] VITALS: BP 133/75; PULSE 99; TEMP 36.6; O2SAT 87
[2017-08-19 12:00] VITALS: O2SAT 94
--- NOTE | 2017-08-19 12:25 | Progress Note ---
Progress Note Date of Service Aug 19, 2017. Progress Note Patient's back pain is controlled. Leg pain improved. Vital signs are stable. An exam is good strength testing. Assessment status post lumbar depression fusion replant this time will maintain the JALEN drain another 24 hours anticipate discharge home tomorrow.
[2017-08-19 16:10] VITALS: BP 139/77; PULSE 103; TEMP 36.9; O2SAT 92
--- NOTE | 2017-08-19 16:30 | NUR ---
ID: Pt A/O x 4 at this time. Continues to try and get oob without ringing. Reinforcement provided. Family member at bedside. Pt oob in chair at this time with chair alarm. Bed alarm used while in bed. X1 assist with a walker. Saline locked. Triflow to 1750 on 2L. Trace pitting edema to left ankle. Denies gas, abdomen distended (obese), non tender, soft. Last BM on 08/17. States its normal for him to not have a BM for 2-3 days and normally requires Dolcolax. Tolerating DMT2 diet. Voids in the toilet with bouts of incontinents. ABD and medipore reinforced with new medipore tape. Open blisters to the right upper back with vaseline gauze, 4x4 and medipore. JALEN holding suction draining serosanguineous to bloody. Alcohol withdrawal scale Q4, Mild symptoms at this time, see EMR for full assessment. Lung sounds are course, non productive cough. Call winn in reach, Pt does not rings appropriately.
--- NOTE | 2017-08-19 18:13 | Progress Note ---
Internal Med Progress Note Date of Service: Aug 19, 2017. Provider Documentation: SUBJECTIVE: Seen and examined at bedside Reports Back pain especially with movement Denies chest pain, SOB, dizziness No bowel movement yet No other complaints Girlfriend at bedside OBJECTIVE: Vital Signs-as noted below Physical Exam: General Appearance:Obese, no apparent distress Head: normocephalic, Atraumatic Eyes: normal inspection, EOMI, PERRL Neck: supple, Trachea midline Respiratory/Chest: Normal breath sounds, CTA Cardiovascular: S1, S2, No murmur Abdomen/GI:Soft, Non tender, Bowel sounds present Back: Surgical site in bandage, +drain Extremities/Musculoskelatal:normal inspection, no edema Neurologic/Psych:AAOX3, grossly no focal neurological deficits Skin: normal color, warm Lab data as noted below. ASSESSMENT & PLAN: Patient is a 66 yr male with PMH of lumbar stenosis with neurogenic claudication , DM II, HTN, HLD, GERD, BPH and DEBORAH who is POD#0 s/p L4-S1 decompression and fusion by Dr. Godinez. Lumbar stenosis s/p spinal surgery: POD # 2 s/p L4-S1 decompression and fusion by Dr. Godinez Pain control Bowel regimen wound care, anticoagulation and activity per Ortho Incentive spirometry PT/OT DM II: A1C:7.5 Hold home agents ISS, Lantus Monitor BG levels HTN: Stable Continue lasix HLD: Continue statin GERD: Continue PPI BPH: Continue tamsulosin DEBORAH: Wears mouthguard at night No CPAP Alcohol use disorder: Thiamine, folic acid Already on Gabapentin for Neuropathy Monitor for withdrawal No signs of withdrawal currently DVT Px: Per ortho Code status: FULL Disposition: Per ortho Vital Signs: Date Time Temp Pulse Resp B/P (MAP) Pulse Ox O2 Delivery O2 Flow Rate FiO2 08/19/17 16:10 36.9 103 18 139/77 (97) 92 Room Air 08/19/17 12:00 94 Nasal Cannula 2.0 08/19/17 11:58 36.6 99 18 133/75 (94) 87 Room Air 08/19/17 07:00 Room Air 08/19/17 06:16 36.8 98 18 122/73 (89) 94 Nasal Cannula 2.0 08/19/17 00:00 Nasal Cannula 2.0 08/18/17 22:51 37.2 94 18 147/84 (105) 92 Nasal Cannula 2.0 08/18/17 20:20 37.2 106 22 162/84 (110) 94 Nasal Cannula 2.0 Lab Results: Results Past 24 Hours Test 08/18/17 20:44 08/19/17 06:57 08/19/17 12:02 08/19/17 17:11 Range/Units Bedside Glucose 272 152 224 221 70-99 mg/dl
[2017-08-19] MEDS: SIMVASTATIN 10 MG TAB PO SCH (20:53)
[2017-08-19] MEDS: ASPIRIN 81 MG ECTAB PO SCH (20:53)
[2017-08-19] MEDS: DOCUSATE SODIUM/SENNA 50/8.6MG TAB PO SCH (20:53)
[2017-08-19] MEDS: TAMSULOSIN HCL 0.4 MG CAP PO SCH (20:53)
[2017-08-19 21:10] VITALS: BP 152/87; PULSE 104; TEMP 37; O2SAT 95
--- NOTE | 2017-08-19 22:16 | NUR ---
A: Pt increasing confusion, moderat alcohol withdrawals scale, see EMR for full assessment. Pt was incontinent x 1. Continues to try to get oob without ringing. Bed in low and locked position, call winn in reach, pt does not ring appropriately.
[2017-08-19 22:57] VITALS: BP 160/82; PULSE 96; TEMP 36.8; O2SAT 93
[2017-08-20] MEDS: POLYETHYLENE (MIRALAX) 17 GM PACK PO SCH ×3 (00:05→12:00)
[2017-08-20] MEDS: OXYCODONE HCL IR 5 MG TAB (IMMEDIATE RELEASE) PO PRN ×2 (00:05→13:49)
[2017-08-20 07:08] VITALS: BP 156/89; PULSE 94; TEMP 36.8; O2SAT 91
[2017-08-20] MEDS: KETOROLAC TROMETHAMINE 15 MG/ML VIAL IV. PRN (08:06)
[2017-08-20 08:10] VITALS: O2SAT 91
--- NOTE | 2017-08-20 08:25 | Discharge Summary ---
Orthopedic Discharge Summary Admission Date/Reason Aug 17, 2017 at 07:30 Lumbar Spinal Stenosis. Discharge Date/Disposition Aug 20, 2017 Home Diagnosis Principal Diagnosis: Lumbar spinal stenosis Admission Physical Exam As per Admitting History & Physical. Discharge Instructions Please refer to the electronic Patient Visit Report (Discharge Instructions) for additional information.
[2017-08-20] MEDS: PANTOprazole SOD 40 MG TAB PO SCH (09:03)
[2017-08-20] MEDS: GABAPENTIN 300 MG CAP PO SCH ×2 (09:03→13:51)
[2017-08-20] MEDS: THIAMINE HCL 100 MG TAB PO SCH (09:03)
[2017-08-20] MEDS: FUROSEMIDE 20 MG TAB PO SCH (09:04)
[2017-08-20] MEDS: INSULIN ASPART 100 UNITS/ML 3 ML PEN SC SCH ×2 (09:08→13:48)
[2017-08-20] MEDS: INSULIN GLARGINE SOLOSTAR 100 UNITS/ML 3 ML PEN SC SCH (09:09)
[2017-08-20 09:59] VITALS: BP 156/89; PULSE 94; TEMP 36.8; O2SAT 91
--- NOTE | 2017-08-20 10:11 | NUR ---
Case Management: Reviewed chart. Pt appears to need a walker. Discussed with pt and he was agreeable to set up. Choices offered and pt agreeable to a referral to [facility]. Referral placed. Pt will need to wait until walker is delivered to bedside prior to discharge. Case Management to follow.
--- NOTE | 2017-08-20 10:38 | NUR ---
a: Drain dc'd and dressing changed per . Steri strips intact. No new drainage on old dressing. Incision site from top to bottom ecchymotic. Has 5 x open blisters on right upper back. These were from day of surgery (tape?). These sites covered with vaseline gauze, 4x4 and paper tape. Also has another intact blister to right of distal end of incision. Covered this with vaseline gauze, 4x4 and paper tape.
[2017-08-20 11:15] VITALS: BP 101/65; PULSE 65; TEMP 36.6; O2SAT 97
--- NOTE | 2017-09-01 06:41 | EDITING REQUIRED CODING QUERY ---
CODING QUERY To promote full compliance with coding requirements relating to patient care, provider participation is requested in all cases of system administration manager uncertainty. Please assist us with the question(s) below: Coding Question(s): This patient has a documented BMI of 40.4. However, for coding purposes, a diagnosis of obesity, overweight, etc needs to be documented in order to capture it. Please clarify below to the best of your knowledge. Thank you so much for your help! Have a great day! ( ) Obesity ( X ) Morbid Obesity ( ) Overweight, nec ( ) Other, explain Thank you! Diana Melchor Principal Diagnosis: "_that condition established after study, to be chiefly responsible for occasioning the admission of the patient to the hospital for care." Co-Existing Principal Diagnosis: "_when two or more diagnoses equally meet the criteria for principal diagnosis as determined by the circumstances of admission, diagnostic work up, and/or therapy provided, and the Alphabetic Index, Tabular List, or another coding guideline does not provide sequencing direction, any one of the diagnoses may be sequenced first." "When the physician has documented what appears to be a current diagnosis in the body of the record, but has not included the diagnosis in the final diagnostic statement, the physician should be asked whether the diagnosis should be added." ([facility] 2 QTR90. p3-4)
== END 2017-08-20 14:21 | disposition home or self-care (01) | DRG 454 ==
LOC: C.ACU 05:45 → C.3E 07:30 → ENRESERV 10:46
PROVIDERS: ADMIT Orthopaedic Surgery Orthopaedic Surgery of the Spine; ATTEND Orthopaedic Surgery Orthopaedic Surgery of the Spine
PROC: 0SG30AJ Fusion of Lumbosacral Joint with Interbody Fusion Device, Posterior Approach, Anterior Column, Open Approach (ICD-10-PCS; principal; 2017-08-17 07:45)
PROC: 0ST40ZZ Resection of Lumbosacral Disc, Open Approach (ICD-10-PCS; principal; 2017-08-17 07:45)
PROC: 0SG0071 Fusion of Lumbar Vertebral Joint with Autologous Tissue Substitute, Posterior Approach, Posterior Column, Open Approach (ICD-10-PCS; principal; 2017-08-17 07:45)
DX: M48.062 Spinal stenosis, lumbar region with neurogenic claudication (principal); Z68.41 Body mass index [BMI] 40.0-44.9, adult; E11.9 Type 2 diabetes mellitus without complications; I10 Essential (primary) hypertension; E78.5 Hyperlipidemia, unspecified; K21.9 Gastro-esophageal reflux disease without esophagitis; N40.0 Benign prostatic hyperplasia without lower urinary tract symptoms; G47.33 Obstructive sleep apnea (adult) (pediatric); E66.01 Morbid (severe) obesity due to excess calories; F10.10 Alcohol abuse, uncomplicated; Z79.4 Long term (current) use of insulin; Z79.82 Long term (current) use of aspirin; Z79.84 Long term (current) use of oral hypoglycemic drugs; Z79.899 Other long term (current) drug therapy